=== PATIENT | female | born 1950 | race Caucasian/White ===

== ENCOUNTER → 2017-04-23 | Outpatient (CLI) | payer OTHER ==
[~2017-04-23] MED LIST: ALPR0.25 PO; ASPI-515 PO; DIPHEN/ATROPINE PO; DOXY100T10 PO; ERLO100T PO; HYDR-3237 PO; LEVO75TA PO; LOSA100T6 PO; LOSA50TA2 PO; PIOG1TAB16 PO; PIOGLITAZONE PO; PITA4TAB2 PO; PREMARIN CREAM CERVICAL; ZOLP5TAB6 PO
== END | disposition home or self-care (01) ==
LOC: ROC 14:50
PROVIDERS: ATTEND Radiology Radiation Oncology
DX: C50.411 Malignant neoplasm of upper-outer quadrant of right female breast (principal)
CPT/HCPCS: 99212; G0463